=== PATIENT | female | born 1965 | race Hispanic/Latino ===

== ENCOUNTER 2019-03-11 10:22 | Day surgery (SDC) | payer BC ==
[2019-03-11] MEDS ORDERED: FENTANYL CITR 100 MCG/2 ML ONE (10:45)
[2019-03-11] MEDS ORDERED: PROPOFOL 200 MG/20 ML VIAL IV ONE (10:45)
[2019-03-11] MEDS ORDERED: MIDAZOLAM HCL 2 MG/2 ML INJ ONE (10:46)
[2019-03-11] MEDS ORDERED: LIDOCAINE 2% MPF 5 ML VIAL ONE (10:46)
[2019-03-11] MEDS ORDERED: ONDANSETRON 4 MG/2 ML VIAL ONE (10:48)
[2019-03-11] MEDS ORDERED: NA CHLORIDE 0.9% 1,000 ML ONE (10:48)
[2019-03-11 10:57] LABS: Absolute Lymphocytes (CBC) 2.4 K/uL (0.7-4.9); Basophils % 0.7 % (0-1.3); Hematocrit 40.9 % (36.0-45.0); Lymphocytes % 21.9 % (15.3-44.8); MPV 9.4 fL (7.6-11.3)
[2019-03-11] MEDS ORDERED: CEFOXITIN/SWI 1gm 1 GM/10 ML SYR ONE (11:10)
[2019-03-11 11:11] LABS: Potassium 4.1 mmol/L (3.5-5.1)
--- NOTE | 2019-03-11 11:19 | EKG ---
Test Date: 2019-03-11 Test Time: 10:28:46 Official Greeter: PATITO MEASUREMENT RESULTS: Intervals: Rate: 91 MD: 126 QRSD: 72 QT: 350 QTc: 430 Watson: P: 69 MD: 126 QRS: 35 T: 43 INTERPRETIVE STATEMENTS: Normal sinus rhythm Normal ECG No previous ECG available for comparison Electronically Signed On 03-11-19 11:18:31 CDT by Nir Lynch
[2019-03-11 12:29] VITALS: TEMP 97.9
[2019-03-11 12:48] VITALS: BP 132/78; O2SAT 98
[2019-03-11] MEDS ORDERED: HYDROCODONE/APAP 7.5/325 MG TAB ONE (12:54)
--- NOTE | 2019-03-12 00:42 | OP ---
Date of Procedure: 03/11/2019 Surgeon: Rene Mcelroy MD Preoperative Diagnosis: Left perirectal abscess. Postoperative Diagnosis: Left perirectal abscess. Procedure: Incision and drainage and debridement of left perirectal abscess, exam under anesthesia, rigid proctoscopy. Estimated Blood Loss: Minimal. Specimen: Pus. Finding: As above. Anesthesia: General. Complications: None. Patient tolerated the procedure in stable condition, taken to Recovery in good general condition. Procedure In Detail: The patient was brought to the OR and placed in supine position. General anest hesia was begun. Patient was placed in lithotomy position, prepped and draped in usual sterile fashi on. Exam under anesthesia revealed an abscess and cellulitis, approximately 6 x 6 cm between the vag christin and anus, to the left of it, lateral to the perineum raphe. Rigid proctoscopy was performed; no evidence of internal fistula opening identified. Marcaine 0.5% was infiltrated around the wounds and then a 4 cm incision was made over the most fluctuant part of the abscess, and pus under pressure ev acuated. Loculation broken up. Necrotic tissue debrided. Wound irrigated. Bleeding controlled wit h cautery. Cultures done, and wet-to-dry normal saline dressing change applied. Patient tolerated t he procedure in stable condition, taken to Recovery in good general condition. Discharge Note: Patient will go to Day Surgery and home when stable. Disposition: Home. Condition: Stable. Discharge Instructions: Resume home medications and diet. Activity as tolerated. No heavy lifting. Remove outer dressing in a.m. Sitz bath. Wet-to-dry normal saline dressing pollock es daily. Follow up in my office in 2 weeks; call for appointment. Tylenol No. 3, 1 tablet p.o. q.4 p.r.n. for pain; Cipro 500 mg p.o. q.12. /MODL Voice ID: [id number] Report ID: [id number]
== END 2019-03-11 13:44 | disposition home or self-care (01) ==
LOC: OR 10:22
PROVIDERS: ATTEND Surgery
PROC: 0D9P0ZX Drainage of Rectum, Open Approach, Diagnostic (ICD-10-PCS; principal; 2019-03-11 11:00)
DX: K61.1 Rectal abscess (principal); E11.9 Type 2 diabetes mellitus without complications; Z80.3 Family history of malignant neoplasm of breast; Z82.49 Family history of ischemic heart disease and other diseases of the circulatory system
CPT/HCPCS: 93005; 87070; 85025; 80048; 36415; 87205 ×2; 82962 ×2; 87185; 87075; 46040; J2704; J2250; J3010; J7030; J2405

== ENCOUNTER 2023-06-06 08:21 | Day surgery (SDC) | payer BC ==
[2023-06-05 11:04] LABS: Absolute Lymphocytes (CBC) 2.1 K/uL (0.7-4.9); Hematocrit 43.1 % (36.0-45.0); Lymphocytes % 27.8 % (15.3-44.8); MCV 88.3 fL (80-100); MPV 9.4 fL (7.6-11.3); Platelets 240 thou/uL (152-406); RBC Red Blood Cell Count 4.88 M/uL (3.86-4.86)
[2023-06-05 11:07] LABS: Protime INR 0.97
[2023-06-06] MEDS ORDERED: CEFAZOLIN SODIUM 1 GM/VIAL ONE ×2 (08:53→09:57)
[2023-06-06] MEDS ORDERED: NA CHLORIDE 0.9% 1,000 ML ONE (08:53)
[2023-06-06] MEDS ORDERED: ONDANSETRON 4 MG/2 ML VIAL ONE (08:58)
[2023-06-06] MEDS ORDERED: FENTANYL CITR 100 MCG/2 ML ONE (08:58)
[2023-06-06] MEDS ORDERED: LIDOCAINE 2% MPF 5 ML VIAL ONE (08:58)
[2023-06-06] MEDS ORDERED: MIDAZOLAM HCL 2 MG/2 ML INJ ONE (08:58)
[2023-06-06] MEDS ORDERED: propofoL 200 MG/20 ML VIAL IV ONE (08:58)
[2023-06-06] MEDS ORDERED: KETOROLAC 30 MG/ML INJ ONE (08:58)
--- NOTE | 2023-06-06 10:36 | P.BOP ---
Preoperative diagnosis: right knee medial meniscus tear, right knee osteoarthritis Postoperative diagnosis: same Primary procedure: right knee arthroscopic partial medial meniscectomy Janitorial Account Manager: NONE,NONE Estimated blood loss: 5 cc Specimen: none Findings: see dictation Anesthesia: General Complications: None Implants: none Fluids & blood products: per anesthesia record Transferred to: Recovery Room Condition: Good
[2023-06-06] MEDS ORDERED: HYDROCODONE/APAP 5/325 MG TAB ONE (11:38)
[2023-06-06 11:50] VITALS: BP 126/66; TEMP 96.1; O2SAT 100
--- NOTE | 2023-06-13 11:25 | OP ---
Date of Procedure: 06/06/2023 Surgeon: George Wilkerson MD Preoperative Diagnoses: 1.Right knee medial meniscus tear. 2.Right knee osteoarthritis. Postoperative Diagnoses: 1.Right knee medial meniscus tear. 2.Right knee osteoarthritis. Procedure Performed: Right knee arthroscopic partial medial meniscectomy. Anesthesia: General LMA. Fluids: Per Anesthesia record. Estimated Blood Loss: 5 cc. Complications: None. Implants: None. Indication For Procedure: Cindy is a 57-year-old female who presented to my clinic with signs, s ymptoms, and MRI findings consistent with osteoarthritis as well as a medial meniscus tear. The ifeanyi ent failed conservative treatment measures including injections and her pain interferes with her acti vities of daily living. I discussed with the patient at length the risks and benefits associated wit h operative and nonoperative treatment measures. She expressed understanding and elected to proceed with operative treatment. We also discussed the possibility of continued pain secondary to her under lying osteoarthritis. She expressed understanding. Description Of Procedure: After informed consent was obtained, the patient was identified in the pre operative holding area. The right lower extremity was marked. The patient was then brought back to the operating room and transferred to the operating table in supine fashion and placed under general LMA anesthesia. The right lower extremity was then prepped and draped in usual sterile fashion. A t leny-out was initiated. The correct patient and procedure were confirmed and identified. The patient did receive her preoperative prophylactic antibiotics. The right lower extremity was exsanguinated using an Esmarch. The tourniquet was inflated to 300 mmHg. Standard anteromedial and anterolateral portals were created. Arthroscope was then brought into the anterolateral portal, and a diagnostic a rthroscopy was performed. The patient was noted to have some mild chondromalacia changes of the troc hlear groove and some minimal chondromalacia of the undersurface of patella. The arthroscope was the n brought into both the medial and lateral gutters and there were no loose bodies found within the gu tters. The arthroscope was then brought into the medial compartment. The patient was noted to have a complex tear of the posterior horn of the medial meniscus. Partial medial meniscectomies were perf ormed using the arthroscopic shaver and meniscal biters to smooth meniscal borders. The posterior ho rn of the meniscus did appear to be stable with portion of the intact. The patient was no victor hugo to have some mild chondromalacia changes of the medial femoral condyle and medial tibial plateau. The arthroscope was then brought into the intercondylar notch. The patient was noted to have intac t ACL and PCL. The arthroscope was then brought into the lateral compartment, where the patient was noted to have a pristine cartilage of the lateral femoral condyle and lateral tibial plateau and a st able lateral meniscus without tear. Arthroscopic instruments were then removed without complication. Wounds were then irrigated thoroughly with normal saline. Skin and portals were approximated using a 4-0 Monocryl. Sterile dressings were applied. The patient was awakened and transferred to PACU i n stable condition. Postoperative Plan: The patient will be weightbearing as tolerated. She will follow up in clinic ne xt week for a wound check. She will begin physical therapy for post-meniscectomy protocol. ODESSA/MODL Voice ID: [id number] Report ID: [id number]
== END 2023-06-06 11:48 | disposition home or self-care (01) ==
LOC: OR 08:21
PROVIDERS: ATTEND Orthopaedic Surgery Sports Medicine
PROC: 0SBC4ZZ Excision of Right Knee Joint, Percutaneous Endoscopic Approach (ICD-10-PCS; principal; 2023-06-06 10:15)
DX: S83.241A Other tear of medial meniscus, current injury, right knee, initial encounter (principal); M17.11 Unilateral primary osteoarthritis, right knee; E11.9 Type 2 diabetes mellitus without complications; E78.00 Pure hypercholesterolemia, unspecified; I10 Essential (primary) hypertension; K21.9 Gastro-esophageal reflux disease without esophagitis
CPT/HCPCS: 85025; 80048; 36415; 85610; 82947 ×2; 85730; 29881; J2704; J2001; J2250; J3010; J2405; J7030; J0690 ×2

== ENCOUNTER 2024-05-15 06:23 | Day surgery (SDC) | payer BC ==
[2024-05-14 15:10] LABS: Absolute Basophils 0.1 K/uL (0-0.5); Absolute Eosinophils 0.2 K/uL (0-0.5); Absolute Lymphocytes (CBC) 2.4 K/uL (0.7-4.9); Absolute Monocytes 0.8 K/uL (0.1-1.3); Absolute Neutrophil 6.9 K/uL (1.8-8.0); Eosinophils % 1.9 % (0-4.4); Hematocrit 47.3 % (36.0-45.0); Hemoglobin 15.7 g/dL (12.0-15.0); Lymphocytes % 22.7 % (15.3-44.8); MCH 30.2 pg (27.0-35.0); MCHC 33.2 g/dL (32.0-36.0); MCV 90.9 fL (80-100); MPV 8.8 fL (7.6-11.3); Monocytes % 7.9 % (3.3-12.3); Neutrophils % 66.5 % (41.7-73.7); Platelets 243 thou/uL (152-406); Red Cell Distribution Width 14.1 % (12.1-15.2)
--- NOTE | 2024-05-14 15:22 | RAD REPORT ---
EXAMINATION: ONE VIEW CHEST XR CLINICAL INDICATION: preop TECHNIQUE: Frontal chest projection is submitted. Examination is limited by patient positioning and t echnique. COMPARISON: 03/14/2023 FINDINGS: The lungs are well inflated and clear. The heart is normal in size. No displaced fractures identified . IMPRESSION: No acute intrathoracic abnormalities.
[2024-05-14 15:27] LABS: Anion Gap 7.1 mEq/L (5.0-15.0); Potassium 4.1 mEq/L (3.5-5.1)
[2024-05-15] MEDS ORDERED: CEFAZOLIN SODIUM 2 GM/VIAL ONE (06:36)
[2024-05-15] MEDS: NA CHLORIDE 0.9% 1,000 ML ONE (06:45)
[2024-05-15] MEDS ORDERED: BUPIVACAINE 0.5% PF 10 ML VIAL ONE (07:07)
[2024-05-15] MEDS ORDERED: FENTANYL CITR 100 MCG/2 ML ONE ×2 (07:14→08:08)
[2024-05-15] MEDS ORDERED: propofoL 200 MG/20 ML VIAL IV ONE (07:14)
[2024-05-15] MEDS ORDERED: ONDANSETRON 4 MG/2 ML VIAL ONE (07:14)
[2024-05-15] MEDS ORDERED: MIDAZOLAM HCL 2 MG/2 ML INJ ONE (07:14)
[2024-05-15] MEDS ORDERED: LIDOCAINE 2% MPF 5 ML VIAL ONE (07:14)
[2024-05-15] MEDS: CEFAZOLIN SODIUM 2 GM/VIAL IVPB ONE (07:57)
[2024-05-15] MEDS: BUPIVACAINE 0.5% PF 10 ML VIAL SQ ONE (08:08)
[2024-05-15] MEDS ORDERED: dexAMETHasone 4 MG/ML VIAL ONE (08:19)
--- NOTE | 2024-05-15 08:47 | P.OP ---
Date of Service: 05/15/24 Preop diagnosis: Infected sebaceous cyst back Postop diagnosis: Same Procedure performed: Wide excision infected sebaceous cysts 7 x 4 cm with layered closure Surgeon: Rene Mcelroy MD Movie Critic: None Estimated blood loss: Minimal Specimen: Infected sebaceous cyst Findings: As above Anesthesia: General Complications: None Drains: Quarter inch [place] drain Fluids and blood products: Nonapplicable Disposition: Recovery room Operative note: Patient brought to the OR and placed in supine position. General anesthesia began. Patient placed in the left lateral position. Patient prepped and draped in usual sterile fashion. Marcaine 0.5% infiltrated locally for postop pain control. 15 blade used to make approximately a 7 x 4 cm incision to include the entire infected sebaceous cyst. Subcutaneous tissue divided and bleeding controlled cautery. Entire cyst in total was removed and sent to pathology as specimen. Wound irrigated and bleeding controlled cautery. Flaps created. 2-0 chromic used to reapproximate subcutaneous tissue. 3-0 nylon used to close skin. Quarter inch Gricel drain placed and secured with 3- 0 nylon prior to the wound closure. Sterile dressing applied. Patient awakened and taken to recovery room in good general condition. CC: Dr. Velasco's office
[2024-05-15] MEDS: HYDROCODONE/APAP 7.5/325 MG TAB ONE (09:44)
[2024-05-15 10:25] VITALS: BP 107/55; TEMP 97.7; O2SAT 98
--- NOTE | 2024-05-15 11:09 | EKG ---
Test Date: 2024-05-14 Test Time: 15:09:30 Resort Keeper: FABIO MEASUREMENT RESULTS: Intervals: Rate: 83 CA: 126 QRSD: 80 QT: 356 QTc: 418 [place]: P: 65 CA: 126 QRS: 52 T: 61 INTERPRETIVE STATEMENTS: Normal sinus rhythm Normal ECG Compared to ECG 03/14/2023 08:21:35 No significant changes Electronically Signed On 05-15-24 11:07:30 CDT by Carl Monterroso
== END 2024-05-15 10:24 | disposition home or self-care (01) ==
LOC: OR 06:23
PROVIDERS: ATTEND Surgery
PROC: 0JB70ZZ Excision of Back Subcutaneous Tissue and Fascia, Open Approach (ICD-10-PCS; principal; 2024-05-15 07:35)
DX: L72.3 Sebaceous cyst (principal); L08.9 Local infection of the skin and subcutaneous tissue, unspecified
CPT/HCPCS: 93005; 85025; 80048; 36415; 82947; 88304; 71045; 11406; J2704; J1100; J2003; J2250; J3010 ×2; J2405; J7030